=== PATIENT | male | born 1960 | race African-American/Black ===

== ENCOUNTER 2019-03-18 08:21 | Emergency (ER) | payer SELFPAY ==
[~2019-03-18] VITALS: Ht 177.8 cm; Wt 110.0 kg
[2019-03-18 08:28] VITALS: BP 164/100
[2019-03-18] MEDS ORDERED: KETOROLAC 60MG/2ML VIAL IM ONE (08:45)
== END 2019-03-18 09:19 | disposition home or self-care (01) ==
LOC: ER 08:21
DX: M25.512 Pain in left shoulder (principal); I10 Essential (primary) hypertension; F12.10 Cannabis abuse, uncomplicated; Z98.890 Other specified postprocedural states
CPT/HCPCS: 96372; 99283; J1885; L3670

== ENCOUNTER 2019-03-21 20:26 | Emergency (ER) | payer SELFPAY ==
[~2019-03-21] VITALS: Ht 177.8 cm; Wt 110.0 kg
[2019-03-21] MEDS ORDERED: KETOROLAC 60MG/2ML VIAL IM STA (22:26)
[2019-03-21 22:59] VITALS: BP 178/119
== END 2019-03-21 23:00 | disposition home or self-care (01) ==
LOC: ER 20:42
DX: M25.512 Pain in left shoulder (principal); Z98.890 Other specified postprocedural states
CPT/HCPCS: 96372; 99283; J1885

== ENCOUNTER 2019-06-06 15:42 | Emergency (ER) | payer OTHER ==
[~2019-06-06] VITALS: Ht 182.9 cm; Wt 104.0 kg
[2019-06-06] MEDS ORDERED: BACITRACIN ZINC OINT UDPKT TOP ONE (18:45)
[2019-06-06] MEDS ORDERED: HYDROCODONE/ACETAMINOPHEN 5/325MG TABLET PO ONE (18:45)
[2019-06-06 20:00] VITALS: BP 147/84
== END 2019-06-06 20:38 | disposition home or self-care (01) ==
LOC: ER 15:42
DX: S00.83XA Contusion of other part of head, initial encounter (principal); S00.212A Abrasion of left eyelid and periocular area, initial encounter; I10 Essential (primary) hypertension; Y04.0XXA Assault by unarmed brawl or fight, initial encounter; Y93.89 Activity, other specified; Y92.018 Other place in single-family (private) house as the place of occurrence of the external cause
CPT/HCPCS: 70486; 99284